=== PATIENT | male | born 1940 | race Caucasian/White ===

== ENCOUNTER 2020-07-05 09:56 | Day surgery (SDC) | payer MEDICARE, BC ==
[~2020-07-05 09:56] MED LIST: Lactated Ringers 1,000 ML IV SCH
[2020-07-05] MEDS ORDERED: Propofol 200 MG/20 ML SDV ONE ×2 (11:09→11:33)
--- NOTE | 2020-07-06 07:49 | OR ---
SURGERY DATE: 07/05/2020. REFERRING PROVIDER: OBDULIO Paniagua PRE-OPERATIVE DIAGNOSES: 1. Dysphagia with questionable esophageal stricture and/or hiatal hernia. Symptoms had been a little better over the past week per patient report. 2. Increased heartburn lately with cough. 3. Parkinson's disease. POST-OPERATIVE DIAGNOSES: 1. Mild antritis. Cold biopsy x2 bites taken for path and Helicobacter pylori. 2. Some minimal esophagitis at the gastroesophageal junction. There was no evidence for any hiatal hernia. Upon the scope initially entering the stomach, there was some resistance noted at the lower esophageal sphincter. This let up after the scope had passed and close inspection of the area afterwards seems like there was plenty of room and does not require any dilation at this time. PROCEDURE: Esophagogastroduodenoscopy with cold biopsy x1 site. SURGEON: Joce Hernandez M.D. ANESTHESIA: Monitored anesthesia care. Leandro is an 80-year-old male who was brought to the endoscope suite after discussion of risks and benefits (including but not limited to reaction to medication, bleeding, infection, aspiration, perforation). Informed consent was obtained for monitored anesthesia care and esophagogastroduodenoscopy along with possible biopsy and/or dilatation. Pre-procedure exam including oral cavity was unremarkable. IV, oxygen, and monitors were placed. Patient was placed in the left lateral position and sedation was administered. A bite block was placed gently and scope lightly lubricated and passed through the bite block and over the tongue. Hypopharynx and vocal cords were visualized and unremarkable. Scope was passed through the cricopharynx and into the esophagus. The scope was then passed through the distal esophagus and the GE junction was visualized and photographed. The GE junction revealed some minimal esophagitis. Upon first passage of the scope, did need a little resistance, but I believe this was all due to the contracted lower esophageal sphincter. After the scope was passed, this seemed to let up and there did not seem to be any stricture of significance, at least that would require any dilatation at this time. Vocal cords were visualized and unremarkable. The scope was advanced into the stomach and gastric donnelly was suctioned. Pylorus was identified and intubated and then the scope was advanced to the third portion of the duodenum. The second and third portions of the duodenum were unremarkable. The duodenal bulb was visualized and unremarkable. The scope was brought back into the stomach. The pylorus and the antrum were remarkable for some mild antritis. Cold biopsy x2 bites was taken for path and H pylori within the antrum. The scope was then retroflexed to visualize the angularis, fundus, body, and cardia. These were unremarkable. The stomach was desufflated of air and then the scope was slowly withdrawn, and the esophagus was closely visualized during withdrawal all the way into the posterior pharynx. It was somewhat tortuous, but no significant inflammation, strictures, rings noted. The patient tolerated the procedure well and went to recovery in stable condition. The patient was monitored until at baseline status. Findings and discharge instructions were reviewed and the patient was discharged in good condition. COMPLICATIONS: None. TOTAL TIME: 9 minutes. ESTIMATED BLOOD LOSS: Less than 1 mL. RECOMMENDATIONS/FOLLOW-UP: We will await results of antral biopsies and send letter with these results. In the meantime, I think the patient would benefit from doing a daily PPI to see if this can help some of his dysphagia and reflux symptoms. We will do prescription for omeprazole 20 mg daily. If dysphagia recurs in the future, we can always consider doing dilatation, but it does not appear to be needed at this time. I would like to kindly thank Vahid Boggs for this referral. DMB: 07/05/2020 12:03:37 MODL: 07/05/2020 15:06:06 /[id number]
== END 2020-07-05 13:30 | disposition home or self-care (01) ==
LOC: VM.SDS 09:56
PROVIDERS: ATTEND Family Medicine
DX: K29.50 Unspecified chronic gastritis without bleeding (principal); K20.90 Esophagitis, unspecified without bleeding; K31.89 Other diseases of stomach and duodenum; I78.1 Nevus, non-neoplastic; Z01.812 Encounter for preprocedural laboratory examination; Z20.828 Contact with and (suspected) exposure to other viral communicable diseases
CPT/HCPCS: 00731; J2704; J7120; U0002

== ENCOUNTER 2020-08-23 09:32 | Day surgery (SDC) | payer MEDICARE, BC ==
[2020-08-23] MEDS: Lactated Ringers 1,000 ML IV SCH (09:54)
[2020-08-23] MEDS ORDERED: Lidocaine 4% 5 ML Amp ONE (10:37)
[2020-08-23] MEDS ORDERED: fentaNYL 100 MCG/2 ML SDV ONE (10:52)
[2020-08-23] MEDS ORDERED: Propofol 200 MG/20 ML SDV ONE (10:52)
[2020-08-23] MEDS ORDERED: Midazolam 1 MG/ML 2 ML SDV ONE (10:52)
--- NOTE | 2020-08-23 13:16 | OR ---
SURGERY DATE: 08/23/2020. REFERRING PROVIDER: Dr. Annamaria Downing. PRE-OPERATIVE DIAGNOSIS: History of dysphagia with lower esophageal stricture seen on upper gastrointestinal study. The patient did have previous esophagogastroduodenoscopy back on 07/05/2020 and this report was reviewed. At that time, we did not do any dilatation, just started him on PPI, although it looks like he is no longer taking the PPI, stating that it did not seem to make much difference. POST-OPERATIVE DIAGNOSES: 1. Positive lower esophageal stricture with some mild esophagitis present, some [id number] esophagitis. This was dilated with a balloon from 12 mm up to 15 mm in size. 2. Some minimal ongoing antritis present. PROCEDURE: Esophagogastroduodenoscopy with balloon dilatation of lower esophageal stricture. SURGEON: Joce Hernandez M.D. ANESTHESIA: Monitored anesthesia care. Leandro is an 80-year-old male who was brought to the endoscope suite after discussion of risks and benefits (including but not limited to reaction to medication, bleeding, infection, aspiration, perforation). Informed consent was obtained for monitored anesthesia care and esophagogastroduodenoscopy along with possible biopsy and/or dilatation. Pre-procedure exam including oral cavity was unremarkable. Oropharynx was pretreated with lidocaine by the RUBBER TILE FLOOR LAYER. IV, oxygen, and monitors were placed. Patient was placed in the left lateral position and sedation was administered. A bite block was placed gently and scope lightly lubricated and passed through the bite block and over the tongue. Hypopharynx and vocal cords were visualized and unremarkable. The patient did have copious amount of phlegm production in this area, which was suctioned as best as we could. Scope was passed through the cricopharynx and into the esophagus. The scope was then passed through the distal esophagus and the GE junction was visualized and photographed. The GE junction was remarkable for esophageal stricture right near the Z-line and in the second area not quite as prominent about 3 cm above the Z-line. Initially, the scope did meet some resistance. This did open up with recurrent passing of the scope. On the way out, we did dilate this with a balloon from 12 mm up to 15 mm in 3 consecutive increments and holding for at least 30 to 40 seconds. Some very mild bleeding was noted after balloon was deflated and removed. Vocal cords were visualized and unremarkable. The scope was advanced into the stomach and gastric donnelly was suctioned. Pylorus was identified and intubated and then the scope was advanced to the third portion of the duodenum. The second portion of the duodenum was unremarkable. The duodenal bulb was visualized and unremarkable. The scope was brought back into the stomach. The pylorus and the antrum revealed some minimal ongoing inflammation. No biopsies were taken since the patient did just have EGD with biopsies done 07/05/2020. The scope was then retroflexed to visualize the angularis, fundus, body, and cardia. These were unremarkable. The stomach was desufflated of air and then the scope was slowly withdrawn, and the esophagus was closely visualized during withdrawal all the way into the posterior pharynx. This was otherwise unremarkable except for that noted under GE junction above. The patient tolerated the procedure well and went to recovery in stable condition. The patient was monitored until at baseline status. Findings and discharge instructions were reviewed and the patient was discharged in good condition. COMPLICATIONS: None. TOTAL TIME: 16 minutes. ESTIMATED BLOOD LOSS: 1 to 2 mL. RECOMMENDATIONS/FOLLOW-UP: Do recommend the patient resume his omeprazole 20 mg daily to help prevent any recurrence of esophageal stricture. If the patient continues to have ongoing dysphagia symptoms, we can consider dilating further in the near future if needed (every 1-2 wks if needed). I would like to kindly thank Dr. Downing as well as Vahid Boggs for this referral. DMB: 08/23/2020 11:42:31 MODL: 08/23/2020 12:13:00 /[id number]
== END 2020-08-23 12:35 | disposition home or self-care (01) ==
LOC: VM.SDS 09:32
PROVIDERS: ATTEND Family Medicine
DX: K22.2 Esophageal obstruction (principal); K20.90 Esophagitis, unspecified without bleeding; I10 Essential (primary) hypertension; N40.1 Benign prostatic hyperplasia with lower urinary tract symptoms; N13.8 Other obstructive and reflux uropathy; E78.00 Pure hypercholesterolemia, unspecified; I73.9 Peripheral vascular disease, unspecified; Z01.812 Encounter for preprocedural laboratory examination; Z20.822 Contact with and (suspected) exposure to COVID-19; Z79.899 Other long term (current) drug therapy; Z88.8 Allergy status to other drugs, medicaments and biological substances; Z98.890 Other specified postprocedural states
CPT/HCPCS: 00731; J2250; J2704; J3010; J7120; U0002

== ENCOUNTER 2021-01-14 14:24 | Emergency (ER) | payer MEDICARE, BC ==
[2021-01-14] MEDS ORDERED: EPINEPHrine 1 MG/1 ML Amp ONE (14:48)
[2021-01-14 14:56] LABS: PTT,PARTIAL THROMBOPLSTIN TIME 52.1 SEC (25.6-32.8)
[2021-01-14 15:00] LABS: BASE EXCESS ARTERIAL -17 mmol/L ((-2)-(+3)); BICARBONATE,ARTERIAL 15 mmol/L (21-28); O2 SATURATION ARTERIAL 70.3 %
[2021-01-14 15:04] LABS: PCO2 ARTERIAL 66 mmHG (35-48); PO2 ARTERIAL 58 mmHG (83-108)
--- NOTE | 2021-01-14 15:07 | EDM.PDOC ---
ED HPI GENERAL MEDICAL PROBLEM - General Chief Complaint: CPR in Progress Stated Complaint: CODE BLUE Time Seen by Provider: 01/14/21 14:25 Source of Information: Reports: EMS History Limitations: Reports: Other - History of Present Illness INITIAL COMMENTS - FREE TEXT/NARRATIVE: EMS was called to the house with unwitnessed arrest last seen well at 10 AM this morning by upon arrival patient was in PEA they gave epinephrine started CPR he was transported here to the hospital with heart rate in normotensive blood pressure Per review of systems per the he was fine this morning Onset: Today, Sudden Duration: Minutes: - Related Data Allergies Allergy/AdvReac Type Severity Reaction Status Date / Time atorvastatin [From Lipitor] Allergy Body Aches Verified 01/14/21 23:16 rosuvastatin [From Crestor] Allergy Body Aches Verified 01/14/21 23:16 Home Meds: Home Meds Aspirin [Halfprin] 81 mg PO DAILY 06/10/18 [History] Carbidopa [Lodosyn] 25 mg PO TID 06/10/18 [History] Carbidopa/Levodopa [Carbidopa-Levodopa 25-100] 1.5 tab PO TID 06/10/18 [History] Donepezil HCl [Aricept] 20 mg PO DAILY 06/10/18 [History] Ipratropium [place] 2 sprays NS TID PRN 06/10/18 [History] Magnesium Oxide 250 mg PO BID 06/16/18 [History] Melatonin 10 mg PO BEDTIME 06/16/18 [History] Multivitamin with Minerals [Multiple Vitamin] 1 tab PO DAILY 06/16/18 [History] Cyclone-3 Fatty Acids/Fish Oil [Fish Oil 1,000 mg Softgel] 1 each PO DAILY 06/16/18 [History] Amoxicillin 2,000 mg PO ASDIRECTED PRN 06/18/20 [History] Armodafinil [Nuvigil] 125 - 250 mg PO DAILY PRN 06/18/20 [History] Desonide [Desowen] 1 applic TP BID PRN 06/18/20 [History] Ezetimibe [Zetia] 5 mg PO DAILY 06/18/20 [History] Methylphenidate HCl [Ritalin] 10 - 20 mg PO DAILY PRN 06/18/20 [History] Ondansetron [Zofran ODT] 4 mg PO TID 06/18/20 [History] Potassium Gluconate [Potassium] 99 mg PO BID 06/18/20 [History] Red Yeast Rice 600 mg PO DAILY 06/18/20 [History] Saw [place] 160 mg PO BID 06/18/20 [History] Sertraline [Zoloft] 100 mg PO DAILY 06/18/20 [History] Simvastatin [Zocor] 20 mg PO BEDTIME 06/18/20 [History] Tamsulosin HCl [Flomax] 0.4 mg PO DAILY 06/18/20 [History] Temazepam [Restoril] 15 mg PO BEDTIME 06/18/20 [History] Ubidecarenone [Coenzyme Q-10] 30 mg PO BEDTIME 06/18/20 [History] amLODIPine [Norvasc] 5 mg PO DAILY 06/18/20 [History] guaiFENesin [Mucinex] 600 mg PO BID 06/18/20 [History] Amoxicillin/Clavulanate K [Augmentin 875-125 MG] 1 tab PO BID 08/13/20 [History] Benzonatate 200 mg PO TID PRN 08/13/20 [History] Fluticasone Propionate [Flonase] 2 spray NS BEDTIME 08/13/20 [History] Furosemide [Lasix] 20 mg PO DAILY 08/13/20 [History] Promethazine HCl/Codeine [Prometh-Codein 6.25-10 mg/5 ml] 5 ml PO Q4H PRN 08/13/20 [History] Past Medical History Cardiovascular History: Reports: Heart Murmur, High Cholesterol, Hypertension, PVD, Other (See Below) Other Cardiovascular History: mitral valve disorder, bilateral carotid artery disease, aortic stenosis Gastrointestinal History: Reports: Hiatal Hernia, Other (See Below) Other Gastrointestinal History: espohageal stricture Genitourinary History: Reports: BPH Musculoskeletal History: Reports: Arthritis Neurological History: Reports: Parkinson's, Other (See Below) Other Neuro History: REM sleep behavior disorder, mild cognitive disorder, hypersomnia, spinal stenosis of lumbar region Psychiatric History: Reports: ADHD, Anxiety, Depression Endocrine/Metabolic History: Reports: Other (See Below) Other Endocrine/Metabolic History: impaired fasting glucose Hematologic History: Reports: Anemia - Past Surgical History HEENT Surgical History: Reports: Adenoidectomy, Cataract Surgery, Tonsillectomy Cardiovascular Surgical History: Reports: Carotid Endarterectomy, Valve Replacement GI Surgical History: Reports: Colonoscopy Musculoskeletal Surgical History: Reports: Hip Replacement Social & Family History - Caffeine Use Caffeine Use: Reports: Coffee Other Caffeine Use: coffee w/ cocoa ED ROS GENERAL - Review of Systems Review Of Systems: Unable To Obtain Reason Not Obtained: CPR code per family was last seen about 10 am ROS per Constitutional: Denies: Fever, Chills, Malaise, Weakness, Fatigue HEENT: Reports: No Symptoms Respiratory: Denies: Shortness of Breath, Pleuritic Chest Pain, Cough, Sputum, Hemoptysis Cardiovascular: Reports: No Symptoms Endocrine: Reports: No Symptoms GI/Abdominal: Reports: No Symptoms : Reports: No Symptoms Musculoskeletal: Reports: No Symptoms Skin: Reports: No Symptoms Neurological: Reports: No Symptoms Hematologic/Lymphatic: Reports: No Symptoms Immunologic: Reports: No Symptoms ED EXAM, CPR - Physical Exam Exam: See Below Limited By: Unresponsive Eye Exam: Bilateral Eye: Other (pupils fixed ) Ears: Normal External Exam, Normal Canal, Normal TMs Nose: Normal Inspection, Normal Mucosa, No Blood Head: Atraumatic, Normocephalic Respiratory Chest: Other (Patient was intubated) Cardiovascular: Normal Pulse, Normal Peripheral Pulses (Initial arrival to the ER patient did have positive carotid brachial dorsalis pedis but they diminished over time), No Edema, No Gallop Extremities: Normal Inspection, No Pedal Edema Skin Exam: Warm, Dry, Intact, Normal Color, No Rash Course - Vital Signs Text/Narrative:: Upon arrival patient had normal heart rate normotensive blood pressure unresponsive heart rate diminished epinephrine IV was given with epi drip started. Discussed with the family at that time they wanted full code services provided called [facility] initially they were full no beds available the ICU attending Dr. MARGOTH ARDON L recommended that they possibly go to comfort measures unless we can get a CT head and chest but recommended that we transfer to another facility secondary to no beds. Called [facility] at that time spoke with Dr. PEDRO HOPSON ICU attending recommended the same get the said CT and chest they were also full but willing to move beds around if need be. Also did recommend possibility of comfort measures After speaking with the family they agreed that comfort measures was the best for their family member and agreed that we turn off the epinephrine and take the patient off ventilator Time of 1634 Total amount of critical care time spent with this patient was hour and a half - Orders/Labs/Meds Labs: Laboratory Tests 01/14/21 01/14/21 01/14/21 Range/Units 14:30 14:30 14:30 WBC 27.0 H* (4.0-10.0) x10^3/uL RBC 5.54 (4.5-6.0) x10^6/uL Hgb 16.0 (14.0-18.0) g/dL Hct 50.1 (40.0-52.0) % MCV 90.4 (78.0-93.0) fL MCH 28.9 (26.0-32.0) pg MCHC 31.9 L (32.0-36.0) g/dL RDW Coeff of Marlin 14.4 (10.0-15.0) % Plt Count 218 (130-400) x10^3/uL Add Manual Diff Yes Neutrophils % (Manual) 80 (50-80) % Band Neutrophils % 5 (0-6) % Lymphocytes % (Manual) 8 L (25-50) % Monocytes % (Manual) 6 (2-11) % Myelocytes % 1 H (0) % Platelet Estimate Adequate PT 15.1 H (9.9-12.5) SEC INR 1.4 L (2.0-3.5) APTT 52.1 H (25.6-32.8) SEC D-Dimer, Quantitative 20.01 H (<=0.58) mg/LFEU ABG pH (7.35-7.45) pH ABG pCO2 (35-48) mmHG ABG pO2 (83-108) mmHG ABG HCO3 (21-28) mmol/L ABG Total CO2 (22-29) mmol/L ABG O2 Saturation % ABG Base Excess ((-2)-(+3)) mmol/L FiO2 Sodium 139 (136-145) mmol/L Potassium 3.6 (3.5-5.1) mmol/L Chloride 103 (98-107) mmol/L Carbon Dioxide 16 L (21-32) mmol/L Anion Gap 23.6 H (5-15) mmol/L BUN 40 H (7-18) mg/dL Creatinine 2.1 H (0.70-1.30) mg/dL Est Cr Clr Drug Dosing TNP Estimated GFR (MDRD) 31 Glucose 164 H (70-99) mg/dL Calcium 10.0 (8.5-10.1) mg/dL Troponin I High Sens 104 H* (<=76) ng/L 01/14/21 Range/Units 14:45 WBC (4.0-10.0) x10^3/uL RBC (4.5-6.0) x10^6/uL Hgb (14.0-18.0) g/dL Hct (40.0-52.0) % MCV (78.0-93.0) fL MCH (26.0-32.0) pg MCHC (32.0-36.0) g/dL RDW Coeff of [place] (10.0-15.0) % Plt Count (130-400) x10^3/uL Add Manual Diff Neutrophils % (Manual) (50-80) % Band Neutrophils % (0-6) % Lymphocytes % (Manual) (25-50) % Monocytes % (Manual) (2-11) % Myelocytes % (0) % Platelet Estimate PT (9.9-12.5) SEC INR (2.0-3.5) APTT (25.6-32.8) SEC D-Dimer, Quantitative (<=0.58) mg/LFEU ABG pH 6.96 L* (7.35-7.45) pH ABG pCO2 66 H* (35-48) mmHG ABG pO2 58 L* (83-108) mmHG ABG HCO3 15 L (21-28) mmol/L ABG Total CO2 17 L (22-29) mmol/L ABG O2 Saturation 70.3 % ABG Base Excess -17 L ((-2)-(+3)) mmol/L FiO2 15.00 Sodium (136-145) mmol/L Potassium (3.5-5.1) mmol/L Chloride (98-107) mmol/L Carbon Dioxide (21-32) mmol/L Anion Gap (5-15) mmol/L BUN (7-18) mg/dL Creatinine (0.70-1.30) mg/dL Est Cr Clr Drug Dosing Estimated GFR (MDRD) Glucose (70-99) mg/dL Calcium (8.5-10.1) mg/dL Troponin I High Sens (<=76) ng/L Meds: Medications Discontinued Medications Generic Name Dose Route Start Last Admin Trade Name Hansa PRN Reason Stop Dose Admin Epinephrine HCl Confirm 01/14/21 14:48 Epinephrine 1 Mg/1 Ml Amp Administered 01/14/21 14:49 Dose 1 mg .ROUTE .STK-MED ONE Departure - Departure Time of Disposition: 16:30 Disposition: 20 Condition: Poor Clinical Impression: Unsuccessful cardiopulmonary resuscitation, PEA (Pulseless electrical activity), - Discharge Information *PRESCRIPTION DRUG MONITORING PROGRAM REVIEWED*: No *COPY OF PRESCRIPTION DRUG MONITORING REPORT IN PATIENT CHAZ: No Referrals: Vahid Boggs PA-C [Primary Care Provider] - Forms: ED Department Discharge - Problem List & Annotations (1) SNOMED Code(s): 205946145 Code(s): R99 - ILL-DEFINED AND UNKNOWN CAUSE OF MORTALITY Status: Acute (2) PEA (Pulseless electrical activity) SNOMED Code(s): 927191790 Code(s): I46.9 - CARDIAC ARREST, CAUSE UNSPECIFIED Status: Acute (3) Unsuccessful cardiopulmonary resuscitation SNOMED Code(s): 150796015 Code(s): LCX8404 - Status: Acute
[2021-01-14 15:10] LABS: CHLORIDE,CL 103 mmol/L (98-107); SODIUM,NA 139 mmol/L (136-145)
[2021-01-14 15:17] LABS: ANION GAP 23.6 mmol/L (5-15)
== END 2021-01-14 17:25 | disposition expired ==
LOC: VM.ED 14:24
DX: I46.9 Cardiac arrest, cause unspecified (principal); I25.10 Atherosclerotic heart disease of native coronary artery without angina pectoris; E78.00 Pure hypercholesterolemia, unspecified; I10 Essential (primary) hypertension; Z79.82 Long term (current) use of aspirin; Z88.8 Allergy status to other drugs, medicaments and biological substances; Z79.899 Other long term (current) drug therapy
CPT/HCPCS: 36600; 71045; 80048; 82803; 84484; 85025; 85379; 85610; 85730; 92950; 94002; 99291; 99291-25; 99292; 99292-GF